=== PATIENT | male | born 1990 | race Caucasian/White ===

== ENCOUNTER 2018-10-03 04:13 | Emergency (ER) | payer MEDICAID ==
[~2018-10-03] VITALS: Ht 172.7 cm; Wt 72.6 kg
[2018-10-03 04:20] VITALS: Ht 172.7 cm; Wt 72.6 kg
[2018-10-03 06:11] VITALS: BP 130/83
== END 2018-10-03 06:12 | disposition home or self-care (01) ==
LOC: ED 04:13
DX: M54.5 Low back pain (principal); R10.9 Unspecified abdominal pain
CPT/HCPCS: J1885; Q0092

== ENCOUNTER 2019-01-01 02:53 | Inpatient (IN) | payer SELFPAY ==
[~2019-01-01] VITALS: Ht 172.7 cm; Wt 73.1 kg
[2019-01-01 03:03] VITALS: Ht 172.7 cm; Wt 73.1 kg
--- NOTE | 2019-01-01 03:06 | NUR ---
PT BIB AMBULANCE DUE TO FEELINGS OF DIZZINESS AND NUMBNESS TO LEFT EXTREMITIES. PT STATED THAT HE GOT UP TO USE THE RESTROOM, WHERE HE BEGAN TO FEEL DIZZY, AND THEN FELT NUMBNESS TO THE LEFT EXTREMITIES AND THOUGHT HE WAS HAVING A STROKE. ON ASSESSSMENT, PT HAS FEELING TO THE LEFT EXTREMITIES. PT ABLE TO LIFT UPPER EXTREMITIES EQUALLY, SMILED WITH TEETH SYMMETRICALLY. AT BEDSIDE FOR ASSESSMENT.
--- NOTE | 2019-01-01 03:50 | NUR ---
PT OFF FLOOR WITH RADIOLOGY.
--- NOTE | 2019-01-01 04:04 | NUR ---
PT BACK ON FLOOR FROM RADIOLOGY.
[2019-01-01 04:07] LABS: BASOPHIL % 0.2 % (0-2); PLATELET COUNT 220 x10^3mcL (130-400); RED CELL DISTRIBUTION WIDTH 14.3 % (11.5-14.5)
[2019-01-01 04:17] LABS: CALCIUM 8.8 mg/dL (8.5-10.1); CARBON DIOXIDE 28.5 mmol/L (21-32); CHLORIDE SERUM 101 mmol/L (98-107); CREATININE SERUM 1.1 mg/dL (0.7-1.3); GFR1 > 60 mL/min; GLUCOSE SERUM 96 mg/dL (74-106); POTASSIUM SERUM 3.5 mmol/L (3.5-5.1); SODIUM SERUM 139 mmol/L (136-145)
[2019-01-01 04:31] LABS: ALKALINE PHOSPHATASE 102 U/L (46-116); ALT/SGPT 26 U/L (16-63); AST/SGOT 13 U/L (15-37); BILIRUBIN TOTAL 0.6 mg/dL (0.20-1.00); FREE T4 0.92 ng/dL (0.76-1.46); TOTAL PROTEIN, SERUM 8.6 g/dL (6.4-8.2)
--- NOTE | 2019-01-01 05:12 | NUR ---
DR. YEUNG AT BEDSIDE FOR SECOND ASSESSMENT.
[2019-01-01 06:30] LABS: AMPHETAMINE QUAL UR NONE DETECTED (See below)
--- NOTE | 2019-01-01 07:27 | NUR ---
GAVE REPORT TO LAYA HASKINS. ALL QUESTIONS AND CONCERNS ANSWERED.
[2019-01-01 07:53] VITALS: BP 120/80
--- NOTE | 2019-01-01 07:53 | NUR ---
RECEIVED PT. FROM ER DEPT. A/A/O X3. NO SOB, NO N/V NOTED. PT. DENIES ANY PAIN AT THIS TIME. PT. STATED HE FEELS "A LITTLE LIGHTHEADED". PT. DENIES NUMBNESS OR WEAKNESS TO ANY BODY PART AT THIS TIME. IV SITE NOTED TO R AC. B/P= 120/80, P= 100, R.R.= 16, T= 99.3, O2 SAT.= 95% (RA). PT. IS PLACED ON TELE. MONITOR #[id number], WHISH SHOWS SR-ST WITH THE H.R. RANGING BETWEEN 94 TO 105 BPM. SKIN INTACT. NO EDEMA NOTED. BED IN LOW POS., CALL LIGHT WITHIN REACH. SIDE RAILS UP X3.
[2019-01-01 09:38] LABS: PHOSPHOROUS 3.7 mg/dL (2.5-4.9)
[2019-01-01 10:00] VITALS: BP 126/69
[2019-01-01 12:28] VITALS: BP 120/80
[2019-01-01 14:51] VITALS: BP 118/57
--- NOTE | 2019-01-01 18:00 | NUR ---
NASAL SWAB OBTAINED AND SENT TO LAB FOR MRSA NARES SCREENING.
[2019-01-01 18:23] VITALS: BP 107/74
--- NOTE | 2019-01-01 19:12 | NUR ---
REMAINS IN STABLE CONDITION AT THIS TIME. WILL CONTINUE TO MONITOR.
--- NOTE | 2019-01-01 19:30 | NUR ---
RECEIVED PT IN BED AWAKE, ALERT,ORIENTED X4 AND W/ VISITOR AT BEDSIDE. PT DENIED HAVING DIZZINESS OR LIGHTHEADEDNESS. NO C/O HEADACHE. HE DENIED HAVING WEAKNESS. NO SOB ON RA. HE HAS NO C/O PAIN AT THIS TIME. W/ IVF NS INFUSING WELL AT 100 CC/HR VIA RTAC . CALL LIGHT W/IN REACH.
[2019-01-01 21:34] VITALS: BP 109/71
--- NOTE | 2019-01-01 22:00 | NUR ---
DR. BUSH TALKED TO PT REGARDING THE RISKS OF LEAVING AMA BUT PT STILL DECIDED ON LEAVING AMA. PT SIGNED PAPER FOR LEAVING AMA.
--- NOTE | 2019-01-01 22:12 | NUR ---
IV TO RTAC REMOVED. NO ACTIVE BLEEDING NOTED.
--- NOTE | 2019-01-01 22:16 | NUR ---
PT AND HIS GIRLFRIEND ESCORTED DOWN BY COIN MACHINE ASSEMBLER. PT LEFT AMA . ALL BELONGINGS TAKEN BY PT.
== END 2019-01-01 22:16 | disposition left against medical advice (07) | DRG 918 ==
LOC: ED 02:53 → DU 06:45
PROVIDERS: Emergency Medicine; ADMIT Internal Medicine
DX: T40.5X1A Poisoning by cocaine, accidental (unintentional), initial encounter (principal); G45.9 Transient cerebral ischemic attack, unspecified; R29.702 NIHSS score 2; F14.90 Cocaine use, unspecified, uncomplicated; E78.5 Hyperlipidemia, unspecified; D72.829 Elevated white blood cell count, unspecified; Z53.21 Procedure and treatment not carried out due to patient leaving prior to being seen by health care provider; R42 Dizziness and giddiness; Y92.098 Other place in other non-institutional residence as the place of occurrence of the external cause; Z87.442 Personal history of urinary calculi
CPT/HCPCS: 83880; 84439; G0480; J0696; J7030; Q0092

== ENCOUNTER 2020-01-07 19:51 | Emergency (ER) | payer OTHER ==
[~2020-01-07] VITALS: Ht 172.7 cm; Wt 72.6 kg
[2020-01-07 20:09] VITALS: Ht 172.7 cm; Wt 72.6 kg
[2020-01-07 21:00] LABS: BASOPHIL % 0.2 % (0-2); PLATELET COUNT 195 x10^3mcL (130-400); RED CELL DISTRIBUTION WIDTH 14.5 % (11.5-14.5)
[2020-01-07 21:11] LABS: CALCIUM 8.5 mg/dL (8.5-10.1); CARBON DIOXIDE 25.9 mmol/L (21-32); CHLORIDE SERUM 102 mmol/L (98-107); CREATININE SERUM 1.1 mg/dL (0.7-1.3); GFR1 > 60 mL/min; GLUCOSE SERUM 131 mg/dL (74-106); POTASSIUM SERUM 3.6 mmol/L (3.5-5.1); SODIUM SERUM 137 mmol/L (136-145)
[2020-01-07 21:15] LABS: ALBUMIN 3.4 g/dL (3.4-5.0); ALKALINE PHOSPHATASE 89 U/L (46-116); ALT/SGPT 7 U/L (16-63); AST/SGOT 25 U/L (15-37); BILIRUBIN TOTAL 0.56 mg/dL (0.20-1.00); LIPASE 61 IU/L (73-393); TOTAL PROTEIN, SERUM 7.6 g/dL (6.4-8.2)
[2020-01-07 21:16] LABS: AMYLASE 22 U/L (25-115)
[2020-01-08 00:22] VITALS: BP 102/65
== END 2020-01-08 00:22 | disposition home or self-care (01) ==
LOC: ED 19:51
PROVIDERS: Emergency Medicine
DX: K52.9 Noninfective gastroenteritis and colitis, unspecified (principal)
CPT/HCPCS: 36415; 87804

== ENCOUNTER 2020-02-26 03:50 | Emergency (ER) | payer OTHER ==
[~2020-02-26] VITALS: Ht 172.7 cm; Wt 72.2 kg
[2020-02-26 03:58] VITALS: Ht 172.7 cm; Wt 72.2 kg
[2020-02-26 05:41] VITALS: BP 139/86
== END 2020-02-26 05:41 | disposition home or self-care (01) ==
LOC: ED 03:50
DX: J02.9 Acute pharyngitis, unspecified (principal); R11.10 Vomiting, unspecified; Z87.442 Personal history of urinary calculi